=== PATIENT | male | born 1970 | race Caucasian/White ===

== ENCOUNTER 2022-06-14 11:10 | Outpatient (CLI) | payer BC, SELFPAY ==
[2022-06-14 14:00] LABS: Albumin* 4.8 g/dL (3.3-5.0)
[2022-06-14 14:02] LABS: Bilirubin Direct* 0.2 mg/dL (0.0-0.5); Bilirubin Total* 1.9 mg/dL (0.1-1.5); Total Protein* 7.4 g/dL (6.0-8.3)
[2022-06-14 14:03] LABS: Alanine Aminotransferase* 28 U/L (4-50); Alkaline Phosphatase* 66 U/L (40-150); Aspartate Amino Transferase* 29 U/L (12-35)
[2022-06-14 14:19] LABS: Vitamin D 25 Hydroxy* 21 ng/mL (30-80)
[2022-06-14 14:34] LABS: Chloride* 100 mmol/L (96-114); Potassium* 4.6 mmol/L (3.6-5.1); Sodium* 138 mmol/L (135-149)
[2022-06-14 14:37] LABS: Blood Urea Nitrogen* 21 mg/dL (7-30); Carbon Dioxide* 27 mmol/L (20-32); Cholesterol* 189 mg/dL (90-199); Creatinine* 0.7 mg/dL (0.5-1.5); Estimated Glomerular Filt Rate 112 ml/min; Glucose* 107 mg/dL (60-115); Triglycerides* 110 mg/dL (40-149)
[2022-06-14 14:38] LABS: Calcium* 9.5 mg/dL (8.4-10.6); HDL Cholesterol* 52 mg/dL (>=40); LDL Cholesterol Calculated 115 mg/dL (<100)
[2022-06-14 15:00] LABS: PSA Screen* 0.66 ng/mL (0.10-4.00)
== END 2022-06-14 11:11 | disposition home or self-care (01) ==
PROVIDERS: Visit Provider Family Medicine
DX: Z00.00 Encounter for general adult medical examination without abnormal findings (principal); E11.9 Type 2 diabetes mellitus without complications; K76.0 Fatty (change of) liver, not elsewhere classified; E55.9 Vitamin D deficiency, unspecified; Z12.5 Encounter for screening for malignant neoplasm of prostate
CPT/HCPCS: 80048; 80061; 80076; 82306; 84153

== ENCOUNTER 2023-03-03 09:52 | Outpatient (CLI) | payer BC, SELFPAY ==
--- NOTE | 2023-03-03 06:40 | W.ANESCHARGE ---
Anesthesia Charges Start Date/Time Anesthesia Start Date: 03/03/23 Anesthesia Start Time: 10:32 Stop Date/Time Anesthesia Stop Date: 03/03/23 Anesthesia Stop Time: 10:58
--- NOTE | 2023-03-03 11:01 | W.ANESCHARGE ---
Anesthesia Charges Start Date/Time Anesthesia Start Date: 03/03/23 Anesthesia Start Time: 10:32 Stop Date/Time Anesthesia Stop Date: 03/03/23 Anesthesia Stop Time: 10:58
== END 2023-03-03 09:53 | disposition home or self-care (01) ==
LOC: OP CLINIC 09:57
PROVIDERS: PCP Family Medicine; Visit Provider Internal Medicine
DX: Z12.11 Encounter for screening for malignant neoplasm of colon (principal); K63.5 Polyp of colon
CPT/HCPCS: 45385; 811; 88305; J2704

== ENCOUNTER 2023-12-01 10:50 | Outpatient (CLI) | payer BC, SELFPAY ==
--- OUTSIDE RECORDS SUMMARY | 2023-12-01 10:54 | XMS_ITS | Clinical Summary ---
Author Name Unknown Organization [facility] Address [place], [place] [address] Care Team Providers Care Incident Response Lead Name Role Phone Gildardo Vivas MD Primary Care Provider [phone] Allergies Active Allergy Reactions Criticality Noted Date Comments Penicillins Rash 04/03/2007 Medications Medication Sig Dispensed Refills Start Date End Date Status codeine-guaFENesin (ROBITUSSIN AC) 10-100 mg/5 mL syrupIndications:URI (upper respiratory infection) Take by mouth. Take 5 to 10 ml by mouth at bedtime for cough. May repeat in 4-6 hours as needed. 120 mL 0 10/01/2011 Active Active Problems No known active problems Immunizations Name Administration Dates Next Due Tdap 04/03/2007 Family History Medical History Relation Name Comments Other Brother Kidney stones Diabetes Father 68 Hypertension Father Good Health Mother Relation Name Status Comments Brother Father Mother Social History Tobacco Use Types Packs/Day Years Used Date Smoking Tobacco: Every Day Cigarettes Comments:1/2 pack per week; plans to quit Alcohol Use Standard Drinks/Week Comments Yes 0 (1 standard drink = 0.6 oz pur e alcohol) 0-2 beers per month Sex and Gender Information Value Date Recorded Sex Assigned at Not on file Gender Identity Not on file Sexual Orientation Not on file Obstetrics History Last Filed Vital Signs Vital Sign Reading Time Taken Comments Blood Pressure 136/84 10/01/2011 11:36 AM [employer] tower Pulse 72 10/01/2011 11:36 AM [employer] Temperature 36.7 ??C (98.1 ??F) 10/01/2011 1 1:36 AM [employer] Respiratory Rate - - Oxygen Saturation - - Inhaled Oxygen Concentration - - Weight 93.4 kg (205 lb 12.8 oz) 012 11:36 AM [employer] Height 167 cm (5' 5.75) 10/03/2008 1:16 PM [employer] Body Mass Index 33.47 10/03/2008 1:16 PM [employer] Plan of Treatment Health Maintenance Due Date Last Done Comments Depression screening for age 12+ 1983 HIV for age 15-65 1986 BMI (ht and wt on same day) for age 18+ 1989 Hepatitis C screening for ag e 18-79 1989 Colonoscopy through age 75 01/19/2016 Lipids for age 45-75 01/19/2016 04/10/2007 Tetanus booster 04/03/2017 04/03/2007 Zoster (shingles) series for age 50+ (1 of 2) 2021 COVID-19 vaccine series ( - 2022- season) 2023 Influenza for age 50-64 04/07/2024 Tdap Completed 04/03/2007 Pneumococcal series for age 6-64 Aged Out No longer eligible based on patient's age to complete this topic Procedures Procedure Name Priority Date/Time Associated Diagnosis Comments LIPID PANEL Routine 04/10/2007 8:25 AM CDT Routine General Medical Exam from Last 3 Months or Most Recently Relevant to Health Maintenance Results * (ABNORMAL) LIPID PANEL (04/10/2007 8:25 AM CDT) CHOLESTEROL,TOTAL 154 110 - 199 mg/dL [facility] TRIGLYCERIDES 192(H) <150 mg/dL [facility] HDL CHOLESTEROL 48 >40 mg/dL [facility] CHOL/HDL RATIO 3.21 <4.51 [facility] LDL CHOLESTEROL 68 <131 mg/dL [facility] PATIENT STATUS Fasting [facility] Blood specimen (specimen) BLOOD SPECIMEN / Unknown 04/10/2007 8:25 AM CDT 04/10/2007 8:20 AM CDT Gildardo Vivas MD CHEMISTRY [facility] [address] [place] [address] from Last 3 Months or Most Recently Relevant to Health Maintenance Care Teams Incident Response Lead Relationship Specialty Start Date End Date Gildardo Vivas MD [address] [place] [address] PCP - General 02/22/07
== END 2023-12-01 10:51 | disposition home or self-care (01) ==
PROVIDERS: PCP Family Medicine; Visit Provider Family Medicine
DX: E55.9 Vitamin D deficiency, unspecified (principal); N52.9 Male erectile dysfunction, unspecified; E11.9 Type 2 diabetes mellitus without complications; R79.89 Other specified abnormal findings of blood chemistry; Z79.84 Long term (current) use of oral hypoglycemic drugs; Z12.5 Encounter for screening for malignant neoplasm of prostate
CPT/HCPCS: 80048; 80061; 82306; 84403; 84460; G0103

== ENCOUNTER 2024-08-03 10:41 | Emergency (ER) | payer BC, SELFPAY ==
[2024-08-03 10:45] VITALS: BP 147/93; PULSE 77; RESP 18; TEMP 36.9; O2SAT 98; BMI 33.9
--- NOTE | 2024-08-03 11:07 | ED_ITS ---
HPI - General Adult General Chief complaint: Diarrhea Stated complaint: fever, vomiting, diarrhea Time Seen by Provider: 08/03/24 10:55 Source: patient Mode of arrival: ambulatory Limitations: no limitations History of Present Illness HPI narrative: 54-year-old male presenting today with nausea, vomiting, diarrhea that started midday yesterday. States that he felt as though he had a fever yesterday, did not measure it. Does not feel as though he has a fever today. Denies chest or abdominal pain. Denies any sick contacts. Has had multiple bouts of diarrhea and vomiting x1 this morning. No cough, body aches. No blood in his vomitus or stool. Related Data Previous Rx's ?Medication ?Instructions ?Recorded sildenafil 100 mg tablet (Viagra) 50 - 100 mg (0.5 - 1 x 100 mg) PO 12/01/23 QDAY PRN sexual activity #6 tabs testosterone 1.62 % (20.25 mg/1.25 1 packet transdermal QDAY #37.5 12/11/23 gram) transdermal gel packet grams metformin 500 mg tablet,extended 500 mg PO QDAY #30 tabs 07/05/24 release 24 hr Allergies Allergy/AdvReac Type Severity Reaction Status Date / Time penicillin V Allergy Intermediate Hives Verified 12/01/23 09:45 Review of Systems Status of ROS: Reports: 10 or more systems reviewed and unremarkable except as noted in History and below [facility] Medical History Type 2 diabetes mellitus, without long-term current use of insulin ?E11.9 - Type 2 diabetes mellitus without complications (ICD-10) Low testosterone in male ?R79.89 - Other specified abnormal findings of blood chemistry (ICD-10) Erectile dysfunction ?N52.9 - Male erectile dysfunction, unspecified (ICD-10) BPH (benign prostatic hyperplasia) ?N40.0 - Benign prostatic hyperplasia without lower urinary tract symptoms (ICD-10) GERD (gastroesophageal reflux disease) ?K21.9 - Gastro-esophageal reflux disease without esophagitis (ICD-10) Fatty liver ?K76.0 - Fatty (change of) liver, not elsewhere classified (ICD-10) Vitamin D deficiency ?E55.9 - Vitamin D deficiency, unspecified (ICD-10) Obstructive sleep apnea syndrome ?G47.33 - Obstructive sleep apnea (adult) (pediatric) (ICD-10) Calculus of left kidney ?N20.0 - Calculus of kidney (ICD-10) Surgical History History of vasectomy (2005) ?Z98.52 - Vasectomy status (ICD-10) History of laparoscopic cholecystectomy (2004) ?Z90.49 - Acquired absence of other specified parts of digestive tract (ICD- 10) History of appendectomy (1999) ?Z90.49 - Acquired absence of other specified parts of digestive tract (ICD- 10) Social History Narrative: , 3 kids, non-smoker, rare EtOH, Works at [email or web address] What is your current living situation?: I presently have a place to live Problems where you live: pests, such as bugs, ants, or mice In the past 12 months, utilities in danger of being shut off: no In past 12 months, lack of transportation kept you from medical appts, meetings, work, or getting things needed for daily living: no In the past 12 mos, have been you worried that your food would run out before you had money to buy more?: never true In the past 12 mos, the food you bought just didn't last and you didn't have money to buy more?: never true Smoking Status: Light tobacco smoker How often do you have a drink containing alcohol: never AUDIT-C Alcohol total score: 0 Non-prescribed substance use: denies use How often does anyone, including family, friends and others, physically hurt you : never How often does anyone, including family, friends and others, insult or talk down to you: never How often does anyone, including family, friends and others, threaten you with harm: never How often does anyone, including family, friends and others, scream or curse at you: never Health Related Social Needs: Inadequate housing (Z59.1) Exam Narrative: Exam Narrative: Overweight, well-developed patient in no acute distress. Alert and oriented. Answers questions appropriately. Mood and affect are appropriate. Thoughts are goal oriented and rational. No tangential or magical thinking noted. Patient speaks in full sentences without needing to catch his breath. Patient is not tachypneic or tachycardic, afebrile. HEENT: Normocephalic atraumatic. Pupils are equally round reactive to light. Extraocular muscles are intact. Conjunctivae are moist without any icterus noted. Moist mucous membranes. Posterior pharynx is normal. Cardiovascular: Heart is regular rate and rhythm S1 and S2 are present without any murmurs. Lungs: Clear to auscultation bilaterally no wheezes rhonchi or rales are appreciated. Patient takes deep breaths without any discomfort. Abdomen: Soft and nontender nondistended with normal bowel sounds. Extremities: Bilateral lower extremities are without edema. Skin: Well perfused without any obvious rashes. Warm, dry. No diaphoresis noted. Const: Vital Signs, click to edit/add: Vital Signs - 24 hr 08/03/24 10:45 Temperature 98.4 F Pulse Rate [Pulse Oximeter] 77 Respiratory Rate 18 Blood Pressure [Ri t Upper Arm] 147/93 H Pulse Oximetry 98 Oxygen Delivery Me thod Room Air Course Course ED Course: One dose of oral Zofran given. POC glucose 147. Triple swab is negative. Vital Signs Vital signs: Initial Vital Signs Temperature 98.4 F 08/03/24 10:45 Temperature Source Temporal Artery Scan 08/03/24 10:45 Pulse Rate 77 08/03/24 10:45 Respiratory Rate 18 08/03/24 10:45 Blood Pressure 147/93 H 08/03/24 10:45 Blood Pressure Mean 111 H 08/03/24 10:45 Blood Pressure Position Sitting 08/03/24 10:45 Pulse Oximetry 98 08/03/24 10:45 Oxygen Delivery Method Room Air 08/03/24 10:45 Vital Signs Temperature 98.4 F 08/03/24 10:45 Pulse Rate 77 08/03/24 10:45 Respiratory Rate 18 08/03/24 10:45 Blood Pressure 147/93 H 08/03/24 10:45 Pulse Oximetry 98 08/03/24 10:45 Oxygen Delivery Method Room Air 08/03/24 10:45 Temperature 98.4 F 08/03/24 10:45 Pulse Rate 77 08/03/24 10:45 Respiratory Rate 18 08/03/24 10:45 Blood Pressure 147/93 H 08/03/24 10:45 Pulse Oximetry 98 08/03/24 10:45 Oxygen Delivery Method Room Air 08/03/24 10:45 Medications Administered Medications: Discontinued Medications Generic Name Dose Route Start Last Admin Trade Name Catherine PRN Reason Stop Dose Admin Ondansetron HCl 4 mg 08/03/24 11:06 08/03/24 11:12 Ondansetron Odt 4 Mg Tab PO 08/03/24 11:07 4 mg ONCE ONE Administration Medical Decision Making MDM Narrative Medical decision making narrative: 54-year-old male with less than 24 hours of diarrhea and 1 episode of vomiting. This likely represents a viral gastroenteritis. Discussed symptomatic treatment, Imodium, increased fluid hydration and reasons to follow-up. Lab Data Lab results reviewed: Yes I reviewed the patient's lab results Labs: Lab Results 08/03/24 Range/Units 10:42 SARS-CoV-2 (PCR) Negative SARS-CoV-2 (Negative) Influenza Type A (PCR) Negative PCR FLU A (Negative) Influenza Type B (PCR) Negative PCR FLU B (Negative) RSV (PCR) Negative PCR RSV (Negative) Discharge Plan Discharge Clinical Impression: Gastroenteritis Patient Disposition: Home, Self-Care Condition: Stable Instructions: Acute Diarrhea (ED) Additional Instructions: You likely have a viral infection of the gastrointestinal tract that causes diarrhea and vomiting. This can last several days. Recommend starting Imodium-this can be purchased [id number] and will slow down the diarrhea. Make sure to increase your daily fluid intake. If your vomiting worsens and you can not keep anything down, then you should return to the emergency room. Prescriptions: No Action sildenafil [Viagra] 100 mg tablet 50 - 100 mg PO QDAY PRN (Reason: sexual activity) Qty: 6 5RF Rx Instructions: administer 30 minutes to 4 hours before activity testosterone 1.62 % (20.25 mg/1.25 gram) gel in packet 1 packet transdermal QDAY Qty: 37.5 5RF Rx Instructions: apply to max area of ONE upper arm and shoulder metformin 500 mg tablet extended release 24 hr 500 mg PO QDAY Qty: 30 0RF Follow Up/Referrals: Donnie Haile MD [Primary Care Provider] - Stand Alone Forms: MyHealth Info Instructions
[2024-08-03] MEDS: ONDANSETRON ODT 4 MG TAB PO (11:12)
[2024-08-03 11:37] LABS: PCR FLU A Negative PCR FLU A (Negative); PCR FLU B Negative PCR FLU B (Negative); PCR RSV Negative PCR RSV (Negative); SARS PCR* Negative SARS-CoV-2 (Negative)
== END 2024-08-03 12:01 | disposition home or self-care (01) ==
PROVIDERS: Emergency Provider Family Medicine; PCP Family Medicine
DX: K52.9 Noninfective gastroenteritis and colitis, unspecified (principal)
CPT/HCPCS: 82962; 87631; 99283; 99284; A9270

== ENCOUNTER 2024-08-22 10:07 | Outpatient (CLI) | payer BC, SELFPAY | END 2024-08-22 10:08 | disposition home or self-care (01) | LOC: FBOREF 10:07 | PROVIDERS: PCP Family Medicine; Visit Provider Family Medicine | DX: R79.89 Other specified abnormal findings of blood chemistry (principal) | CPT/HCPCS: 36415; 84403 ==

== ENCOUNTER 2024-10-08 11:19 | Outpatient (CLI) | payer BC, SELFPAY ==
--- NOTE | 2024-10-15 13:20 | W.PM.SLEEP ---
Sleep Study Details Details Interpreting Provider: Leti Date of Sleep Study: 10/08/24 Sleep Study Details: STUDY TYPE:? [Home unattended ? BMI:? 34.7 ORDERING PROVIDER:? Mic INDICATION:? Concern about sleep apnea ? SLEEP SUMMARY:? 466 minutes monitored RESPIRATORY SUMMARY:? AHI 26.3 Low oxygen 79 2.1% of study oxygen less than 90% Snoring 96.5% PERIODIC LIMB MOVEMENTS OF SLEEP:? Not recorded CARDIAC:? Range 40-86, mean 55.3 beats per minute IMPRESSION:? Moderate obstructive sleep apnea RECOMMENDATION: Treatment options include CPAP, dental appliance and/or airway expansion surgery. CPAP is favored.
== END 2024-10-08 11:20 | disposition home or self-care (01) ==
PROVIDERS: PCP Family Medicine; Visit Provider Family Medicine
DX: G47.33 Obstructive sleep apnea (adult) (pediatric) (principal)
CPT/HCPCS: 95806

== ENCOUNTER 2025-05-15 08:28 | Outpatient (CLI) | payer BC, SELFPAY | END 2025-05-15 08:29 | disposition home or self-care (01) | PROVIDERS: PCP Family Medicine; Visit Provider Family Medicine | DX: E11.9 Type 2 diabetes mellitus without complications (principal) | CPT/HCPCS: 80048; 80061; 82043; 82570; G0103; T1013 ==